=== PATIENT | male | born 1945 | race Caucasian/White ===

== ENCOUNTER → 2022-02-23 | Outpatient (CLI) | payer MEDICARE, OTHER ==
[2022-02-23 11:28] LABS: BUN/CREATININE RATIO 16 (0-10)
== END ==
LOC: LAB 10:36
PROVIDERS: Family Medicine
DX: E11.9 Type 2 diabetes mellitus without complications (principal); E78.5 Hyperlipidemia, unspecified
CPT/HCPCS: 36415; 80053; 80061; 82043; 83036